=== PATIENT | male | born 1990 | race Caucasian/White ===

== ENCOUNTER → 2020-06-22 09:38 | Outpatient (CLI) | payer OTHER, SELFPAY ==
[2020-06-22] MEDS: COVID-19 VACC #1, MRNA(MOD) 100 MCG/0.5 ML VIAL IM (09:48)
== END ==
PROVIDERS: Visit Provider Internal Medicine
DX: Z23 Encounter for immunization (principal)
CPT/HCPCS: 0011A; 91301

== ENCOUNTER → 2020-07-28 09:33 | Outpatient (CLI) | payer OTHER, SELFPAY ==
[2020-07-28] MEDS: COVID-19 VACC #2, MRNA(MOD) 100 MCG/0.5 ML VIAL IM (09:38)
== END ==
PROVIDERS: Visit Provider Internal Medicine
DX: Z23 Encounter for immunization (principal)
CPT/HCPCS: 0012A; 91301

== ENCOUNTER 2023-12-13 18:57 | Emergency (ER) | payer SELFPAY ==
[2023-12-13 19:23] VITALS: BP 158/66; PULSE 69; RESP 18; TEMP 36.3; O2SAT 98; BMI 30.1
[2023-12-13] MEDS: TET,DIPH,PERTUSS(ACELL),VAC/PF 0.5 ML SYRINGE IM (21:48)
--- NOTE | 2023-12-14 07:30 | ED.WOUNDLAC ---
HPI - Wound/Laceration General Chief Complaint: Wound/Laceration Stated Complaint: thumb cut/left hand at work Source: patient Mode of arrival: Family Vehicle History of Present Illness HPI narrative: Patient left without being seen by provider Related Data Allergies Allergy/AdvReac Type Severity Reaction Status Date / Time No Known Drug Allergies Allergy Verified 12/13/23 19:28 Patient History Social History Smoking Status: Current every day smoker Smoking Status: Current every day smoker tobacco type: cigarettes alcohol intake frequency: 0-2 drinks per day Substance Use Type: marijuana Exam Initial Vital Signs Initial Vital Signs: Vital Signs Temperature 97.4 F L 12/13/23 19:23 Pulse Rate 69 12/13/23 19:23 Respiratory Rate 18 12/13/23 19:23 Blood Pressure 158/66 H 12/13/23 19:23 Pulse Oximetry 98 12/13/23 19:23 Oxygen Delivery Method Room Air 12/13/23 19:23 Course Orders Ordered: Discontinued Medications Diphtheria/Tetanus/Acell Pertussis (Tet,Diph,Pertuss(Acell),Vac/Pf 0.5 Ml Syringe) 0.5 ml IM .ONCE ONE Stop: 12/13/23 19:29 Last Admin: 12/13/23 21:48 Dose: 0.5 ml Documented By: FORREST Discharge Plan Departure Patient Disposition: Left Without Being Seen Clinical Impression: Patient left before evaluation by physician
== END 2023-12-13 22:41 | disposition left against medical advice (07) ==
PROVIDERS: Emergency Provider Emergency Medicine
DX: S61.012A Laceration without foreign body of left thumb without damage to nail, initial encounter (principal); W45.8XXA Other foreign body or object entering through skin, initial encounter; Z23 Encounter for immunization
CPT/HCPCS: 90471; 99283; 90715